=== PATIENT | female | born 1990 | race Caucasian/White ===

== ENCOUNTER 2017-01-17 15:39 | Emergency (ER) | payer MEDICAID ==
[~2017-01-17] VITALS: Ht 157.5 cm; Wt 76.7 kg
[2017-01-17 15:57] VITALS: BP 143/96
[2017-01-17] MEDS ORDERED: LORazepam 1 MG TAB PO ONE ×2 (16:25→16:30)
[2017-01-17] MEDS ORDERED: hydrOXYzine 50 MG/ML VIAL IM ONE (16:30)
[2017-01-17] MEDS ORDERED: HALOPERIDOL IM 5 MG/ML VIAL IM ONE (16:55)
[2017-01-17] MEDS ORDERED: diphenhydrAMINE 50 MG/ML VIAL IM ONE ×2 (17:45→19:00)
[2017-01-17] MEDS ORDERED: DIAZEPAM PFS 10 MG/2 ML SYR IM ONE (17:50)
[2017-01-17] MEDS ORDERED: diphenhydrAMINE 50 MG/ML VIAL ONE (17:55)
[2017-01-17 19:53] LABS: BASOPHILS # (AUTO) 0.2 K/uL (0.00-0.22); BASOPHILS % (AUTO) 1.9 % (0.0-2.0); EOSINOPHILS % (AUTO) 0.3 % (0.0-4.0); HEMATOCRIT 39.3 % (36-48); HEMOGLOBIN 13.2 g/dL (12.0-16.0); LYMPHOCYTES # (AUTO) 2.7 K/uL (2.5-16.5); LYMPHOCYTES % (AUTO) 25.2 % (20.5-51.1); MEAN CORPUSCULAR HEMOGLOBIN 30 pg (27-31); MEAN CORPUSCULAR HGB CONC 34 g/dL (33-37); MEAN CORPUSCULAR VOLUME 88 fL (80-94); MONOCYTES # (AUTO) 0.7 K/uL (0.8-1.0); MONOCYTES % (AUTO) 6.6 % (1.7-9.3); PLATELET COUNT (AUTO) 254 K/uL (140-450); RED BLOOD CELL COUNT(AUTO) 4.48 MIL/uL (4.20-5.40); RED CELL DISTRIBUTION WIDTH 11.8 % (11.6-13.7); WHITE BLOOD COUNT (AUTO) 10.6 K/uL (4.8-10.8)
[2017-01-17 20:03] LABS: ANION GAP 13.4 (8-16); CARBON DIOXIDE 25.8 mmol/L (21-32); CREATININE 0.8 mg/dL (0.6-1.3); POTASSIUM 3.2 mmol/L (3.5-5.1)
[2017-01-17 20:18] LABS: ALBUMIN 3.7 g/dL (3.4-5.0); THYROID STIMULATING HORMONE 4.97 uIU/mL (0.34-3.74); TOTAL BILIRUBIN 0.6 mg/dL (0.0-1.0)
[2017-01-17] MEDS ORDERED: POTASSIUM CHLORIDE 10 MEQ TABER PO ONE (20:40)
[2017-01-17 21:49] VITALS: BP 126/76
== END 2017-01-17 21:50 | disposition home or self-care (01) ==
LOC: MED 15:39
DX: F41.0 Panic disorder [episodic paroxysmal anxiety] (principal); E87.6 Hypokalemia; E03.9 Hypothyroidism, unspecified; K59.00 Constipation, unspecified
CPT/HCPCS: 36415; 74000; 80053; 81002; 81025; 84443; 85025; 93005; 96372; 99285; J1200; J1630; J3360; J3410